=== PATIENT | female | born 2000 | race American Indian/Alaskan Native ===

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

== ENCOUNTER 2021-02-06 11:57 | Emergency (ER) | payer BC ==
[~2021-02-06] VITALS: Ht 165.1 cm; Wt 59.1 kg
[~2021-02-06 11:57] MED LIST changes: +ONDA4TAB6 PO
[2021-02-06 12:18] VITALS: BP 120/79
== END 2021-02-06 13:25 | disposition home or self-care (01) ==
LOC: ER 11:57
DX: R07.89 Other chest pain (principal); R05 Cough; G43.909 Migraine, unspecified, not intractable, without status migrainosus; M19.90 Unspecified osteoarthritis, unspecified site; Z91.018 Allergy to other foods; Z91.010 Allergy to peanuts; Z79.899 Other long term (current) drug therapy
CPT/HCPCS: 71046; 93005; 99283